=== PATIENT | male | born 1950 | race Caucasian/White ===

== ENCOUNTER 2022-07-30 12:36 | Outpatient (CLI) | payer MEDICARE, SELFPAY | END 2022-07-30 12:37 | disposition home or self-care (01) | LOC: MRI 12:39 | PROVIDERS: Visit Provider Radiology Radiation Oncology | DX: C73 Malignant neoplasm of thyroid gland (principal); C79.31 Secondary malignant neoplasm of brain | CPT/HCPCS: 70553; A9575 ==

== ENCOUNTER 2022-09-08 10:40 | Outpatient (CLI) | payer MEDICARE, SELFPAY ==
--- NOTE | 2022-09-08 10:45 | CRLHL7_ITS ---
For Patients: As a result of the 21st Century Cures Act, medical imaging exams and procedure reports are released immediately into your electronic medical record. You may view this report before your referring provider. If you have questions, please contact your health care provider. Indication: Secondary malignant neoplasm of brain, history of medullary thyroid carcinoma, status post whole-brain radiotherapy with hippocampal avoidance from August 04 through August 17, total dose 30 Gy in 10 fractions, per 09/07/2022 office visit note. Technique: Multiplanar, multisequence MRI of the brain obtained without and with contrast. A total of 15 mL of Dotarem IV contrast was administered. Comparison: MRI brain 07/30/2022, outside MRI brain report 07/21/2022 Findings: Re-demonstration of multiple metastatic lesions scattered throughout the infratentorial greater than supratentorial brain, demonstrating mild T2/FLAIR hyperintensity, intrinsic T1 shortening, and subtle enhancement. Several of these lesions also demonstrate mild restricted diffusion, without suspicious susceptibility. Most of these lesions appears similar to slightly decreased in size and conspicuity as detailed below. Supratentorial lesions, indexed on axial postcontrast T1 series 11: 6 mm left postcentral gyrus (image 51), previously 7 mm. 7 mm left posterior basal ganglia (image 82), previously 7 mm. 6 mm right posterior basal ganglia (image 83), previously 6 mm. Reference infratentorial lesions, indexed on axial post-contrast T1 series 11: 4 mm right mid brain (image 100), previously 5 mm. 3 mm left superior dose lateral freda (image 110), previously 4 mm. 1.5 x 1.4 cm AP/TR superolateral right cerebellum (image 131), previously 1.8 x 1.6 cm. 0.9 x 1.7 cm AP/TR posterior right cerebellum (image 143), previously 1.1 x 1.9 cm. No evidence of recent infarct. No acute intracranial hemorrhage or abnormal extra-axial fluid collection. No midline shift, hydrocephalus, or herniation. Major expected intracranial flow voids are preserved were visualized. Moderate paranasal sinus mucosal thickening, with relative sparing of the sphenoid sinuses, and lobulated mucous retention cysts/polyps in both maxillary sinuses. Bilateral mastoid effusions. Unremarkable visualized orbits. Impression: 1. Multiple metastatic lesions scattered throughout the infratentorial, greater than supratentorial brain, with several lesions appearing slightly decreased in size and conspicuity relative to the 07/30/2022 MRI, with index lesions as measured. 2. No evidence of acute intracranial abnormality. More specifically, no acute/subacute ischemia, intracranial hemorrhage, hydrocephalus or herniation. 3. Paranasal sinus inflammatory disease and bilateral mastoid effusions. Dictated by Staci Cho MD @ 09/10/2022 10:22:31 AM (Electronically Signed)
--- NOTE | 2022-09-08 11:45 | CRLHL7_ITS ---
For Patients: As a result of the Century Cures Act, medical imaging exams and procedure reports are released immediately into your electronic medical record. You may view this report before your referring provider. If you have questions, please contact your health care provider. Indication: Secondary malignant neoplasm of brain, history of medullary thyroid carcinoma, status post whole-brain radiotherapy with hippocampal avoidance from August 04 through August 17, total dose 30 Gy in 10 fractions, per 09/07/2022 office visit note. Technique: Multiplanar, multisequence MRI of the cervical spine obtained without and with contrast. A total of 15 mL of Dotarem IV contrast was administered. Comparison: MRI brain 09/08/2022, 07/30/2022 Findings: The cervical lordotic curve is maintained. There is mild degenerative grade 1 anterolisthesis at C5-6, with associated Modic type 2 endplate changes. No evidence of acute osseous abnormality. No suspicious marrow lesion identified. Included views of the posterior fossa redemonstrated multiple enhancing cerebellar and brainstem metastatic lesions. However, no suspicious postcontrast enhancement identified in the included cervical and upper thoracic spinal cord. There is mild cord surface deformity/flattening from spondylitic changes in the mid and lower cervical spine. However, the cord appears grossly normal in course, caliber, and intrinsic signal. C2-C3: Left asymmetric facet arthropathy. No significant neural foramina or spinal canal stenosis. C3-C4: Right asymmetric uncovertebral arthropathy, with mild facet arthropathy. Mild right neural foraminal narrowing. No left neural foraminal or spinal canal stenosis. C4-C5: Shallow posterior disc bulge and mild right asymmetric uncovertebral arthropathy. Mild right neural foraminal narrowing. Patent left neural foramen. Mild spinal canal narrowing. C5-C6: Retrolisthesis, shallow disc-osteophyte complex, uncovertebral arthropathy. Moderate left, moderate-severe right neural foraminal stenosis. Moderate spinal canal stenosis. C6-C7: Disc-osteophyte complex, right asymmetric uncovertebral arthropathy. Mild right neural foraminal narrowing. Patent left neural foramen. Mild spinal canal narrowing. C7-T1: Central disc protrusion effacing the ventral thecal sac, without significant neural foraminal or spinal canal stenosis. Impression: 1. No convincing evidence of metastatic disease in the cervical spine. Re-demonstration of multiple posterior fossa metastatic lesions, detailed in the separate MRI brain report from same day. 2. Cervical spondylosis, greatest at C5-6, where there is moderate spinal canal stenosis and moderate left/moderate-severe right neural foraminal stenosis. 3. Scattered mild neural foraminal and mild spinal canal narrowing elsewhere as detailed. Dictated by Staci Cho MD @ 09/10/2022 10:33:58 AM (Electronically Signed)
== END 2022-09-08 10:41 | disposition home or self-care (01) ==
LOC: MRI 10:41
PROVIDERS: Visit Provider Nurse Practitioner
DX: C73 Malignant neoplasm of thyroid gland (principal); C79.31 Secondary malignant neoplasm of brain; C79.51 Secondary malignant neoplasm of bone
CPT/HCPCS: 70553; 72156; A9575